=== PATIENT | male | born 1995 | race Hispanic/Latino ===

== ENCOUNTER 2017-05-10 19:00 | Emergency (ER) | payer SELFPAY ==
[~2017-05-10] VITALS: Ht 185.4 cm; Wt 127.0 kg
[2017-05-10] MEDS ORDERED: TETANUS/DIPHTHERIA TOX ADULT 0.5 ML SYR IM ONE (19:30)
[2017-05-10] MEDS ORDERED: DIATRIZOATE MEGL/DIATRIZOA SOD 30 ML BTL PO ONE (19:34)
[2017-05-10 19:58] LABS: BASOPHILS % 0.2 % (0.0-1.0); EOSINOPHILS # (AUTO) 0.1 (0.0-0.4); EOSINOPHILS % 0.6 % (0.0-6.0); HEMATOCRIT 50.3 % (38.2-49.6); HEMOGLOBIN 17.3 g/dL (14.0-18.0); LYMPHOCYTES # (AUTO) 1.6 (1.0-3.2); LYMPHOCYTES % 12.3 % (18.0-39.1); MEAN CORPUSCULAR HEMOGLOBIN 31.2 pg (28-32); MEAN CORPUSCULAR HGB CONC 34.4 g/dL (31-35); MEAN CORPUSCULAR VOLUME 90.6 fL (81-99); MONOCYTES # (AUTO) 0.9 (0.2-0.8); NEUTROPHILS # (AUTO) 10.1 (2.1-6.9); NEUTROPHILS % 79.6 % (38.7-80.0); PLATELET COUNT 297 x10e3/uL (140-360); RED BLOOD COUNT 5.55 x10e6/uL (4.3-5.7); RED CELL DISTRIBUTION WIDTH 11.8 % (11.7-14.4)
[2017-05-10 20:10] LABS: INR 1.22; PARTIAL THROMBOPLASTIN TIME 32.9 seconds (23.8-35.5); PROTHROMBIN TIME 14.5 seconds (11.9-14.5)
[2017-05-10 20:18] LABS: ALANINE AMINOTRANSFERASE 36 IU/L (0-55); ALBUMIN 5.1 g/dL (3.5-5.0); ALBUMIN/GLOBULIN RATIO 1.4 (0.8-2.0); ALKALINE PHOSPHATASE 102 IU/L (40-150); ANION GAP 14.9 mmol/L (8-16); BLOOD UREA NITROGEN 13 mg/dL (7-26); BUN/CREATININE RATIO 13 (6-25); CALCIUM 10.2 mg/dL (8.4-10.2); CARBON DIOXIDE 26 mmol/L (22-29); CHLORIDE 104 mmol/L (98-107); CREATININE, SERUM 0.98 mg/dL (0.72-1.25); EST GLOMERULAR FILTRATION RATE > 60 ML/MIN (60-); GLUCOSE 83 mg/dL (74-118); POTASSIUM 3.9 mmol/L (3.5-5.1); SODIUM 141 mmol/L (136-145)
[2017-05-10 20:35] LABS: AMPHETAMINES SCREEN,URINE NEGATIVE (NEGATIVE); PHENCYCLIDINE SCREEN,URINE NEGATIVE (NEGATIVE)
[2017-05-10 20:36] LABS: BENZODIAZEPINES SCREEN,URINE POSITIVE (NEGATIVE)
[2017-05-10] MEDS ORDERED: LIDOCAINE HCL 1% LOCAL INJ 20 ML VIAL INJ STA (21:06)
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
[2017-05-10 22:27] VITALS: BP 145/87
[2017-05-11] MEDS ORDERED: IOPAMIDOL 370 MG/ML 200 ML INFUS..BTL INJ ONE (03:20)
[2017-05-11] MEDS ORDERED: SODIUM CHLORIDE 0.9% 50ML 50 ML ONE (03:20)
== END 2017-05-10 22:30 | disposition home or self-care (01) ==
LOC: ER 19:00
DX: S31.110A Laceration without foreign body of abdominal wall, right upper quadrant without penetration into peritoneal cavity, initial encounter (principal); S80.02XA Contusion of left knee, initial encounter; S90.01XA Contusion of right ankle, initial encounter; X99.1XXA Assault by knife, initial encounter; Y92.89 Other specified places as the place of occurrence of the external cause
CPT/HCPCS: 36415; 74177; 80053; 80307; 85025; 85610; 85730; 86900